=== PATIENT | male | born 1990 | race Two or more races ===

== ENCOUNTER 2024-09-27 20:09 | Emergency (ER) | payer MEDICAID | END 2024-09-27 21:41 | disposition left against medical advice (07) | LOC: ER 20:10 | DX: Z00.8 Encounter for other general examination (principal); Z53.21 Procedure and treatment not carried out due to patient leaving prior to being seen by health care provider ==

== ENCOUNTER 2024-09-28 15:50 | Inpatient (IN) | payer MEDICAID ==
[~2024-09-28] VITALS: Ht 188 cm; Wt 83.3 kg
[2024-09-28 20:30] VITALS: BP 121/85; PULSE 98; RESP 18; TEMP 97.4; O2SAT 100
[2024-09-28 20:50] VITALS: RESP 16; O2SAT 100
[2024-09-28] MEDS ORDERED: mag hydrox/Alum hydrox/simeth 30ml oral suspension PO PRN (20:55)
[2024-09-28] MEDS ORDERED: loperamide 2mg capsule PO PRN (20:55)
[2024-09-28] MEDS ORDERED: magnesium hydroxide 30ml (MOM) UD suspension PO PRN (20:55)
[2024-09-28] MEDS: NICOTINE POLACRILEX 2 MG LOZENGE BC PRN (21:31)
[2024-09-29] MEDS ORDERED: NO HOME MEDS (05:56)
[2024-09-29 07:00] VITALS: BP 114/79; PULSE 69; RESP 16; TEMP 97.6; O2SAT 100
[2024-09-29 07:13] LABS: CHOL/HDL RATIO 1.7 (0.00-4.99); LDL CHOLESTEROL 37 MG/DL (50-100)
[2024-09-29] MEDS: nicotine 21mg patch - 24 hr TD SCH (08:12)
--- NOTE | 2024-09-29 13:41 | HISTORY AND PHYSICAL ---
History & Physical Providers to CC ~ History of Present Illness Reason for Admit\Complaint: SI History of Present Illness Daniel Garrido is a 34-year-old male with past medical history of MDD, SI, methamphetamine abuse, tobacco abuse who was brought to the ED on 5150 hold by her mother due to suicidal ideation and auditory hallucinations. Patient is uncooperative therefore history taking is limited. Patient denies prior ND/CAD, CVA, cardiac arrhythmia, DVT/PE, or GIB. Patient denies current SI or HI, denies chest pain, palpitations, shortness of breath, abdominal pain, n/v/d, fever, chills, dysuria. Patient is admitted to [facility] for continued psychiatric disorder management. Allergies: Coded Allergies: No Known Allergies (Unverified , 09/28/24) Home Medications Home Medications Active Reported No Home Medications (Home Med List) Each Past Medical History Past Medical History MDD SI Tobacco abuse Methamphetamine abuse Past Surgical History Surgical History Comment Denies Family History Family History: Hypertension FATHER Past Social History Social History Comment Alcohol: Daily, 2-3 beers Tobacco: Cigarettes, daily Illicit drug use: Methamphetamine ROS ROS Other than positives in HPI, all 14 review of systems are negative Exam Vitals: Vital Signs Date Time Temp Pulse Resp B/P (MAP) Pulse Ox O2 Delivery O2 Flow Rate FiO2 09/29/24 07:00 97.6 69 16 114/79 (91) 100 Room Air General: A&Ox 3, NAD HEENT: Normocephalic, PERRLA Neck: Supple, trachea midline, no JVD Chest: Clear to auscultation bilaterally Cardiovascular: RRR, S1&S2 Abdomen: Soft and nontender Extremities: No cyanosis/clubbing/or edema Central Nervous System: CN II-XII intact, no focal deficits Musculoskeletal: No paraspinal muscle tenderness, no muscle spasm Skin: Warm and intact Counseling Services Smoking & Tobacco Cessation: > 10 Minutes Additional Plan SI Hallucinations MDD Methamphetamine abuse Tobacco abuse -continue management per psychiatry team -nicotine patch, follow UDS, baseline cbc, cmp Hospitalist team will continue to follow for patient's medical needs I spent a total of 16 minutes on smoking cessation education. I provided exten sive counseling regarding smoking cessation. Date of Service: Sep 29, 2024 Billing Provider: HAYLEY RIVAS BUSINESS SOLUTION ANALYST Common Visit Codes: [id number] INP/OBS CARE (HIGH) Secondary Visit Codes: [id number] CHNG SMOKING >10MIN HAYLEY RIVAS [facility] Sep 29, 2024 13:41
[2024-09-29 14:11] LABS: MEAN PLATELET VOLUME 7.2 FL (7.4-10.4); RED CELL DISTRIBUTION WIDTH 13.3 % (11.5-14.5)
[2024-09-29 14:31] LABS: CREATININE 1.07 MG/DL (0.60-1.10); TOTAL CARBON DIOXIDE 29.5 MMOL/L (24-32); eCRCL 112 ML/MIN; eGFR 79 ML/MIN
--- NOTE | 2024-09-29 14:36 | HISTORY AND PHYSICAL ---
History & Physical - Blank History and Physical CHIEF COMPLIANT Suicidal Ideation HISTORY OF PRESENT ILLNESS Patient presents with psychiatric problem, suicidal ideation, and patient brought in by mom with complaints of suicidal ideation. Patient according to mom the site has a history of methamphetamine use. Patient was at [facility] and left prior to being seen. Mom states that he is making statements that they are suicidal in nature such just what we will she do with his body when he dies, she states he is also hearing voices. She states he has had issues like this in the past. No falls or injuries. No fevers or chills. No chest pain or shortness on breath. No dysuria no abdominal pain no headaches no other complaints. He is on no prescription medications. CHART REVIEW Daniel was taken to [facility] by his mother after she was concerned for his safety. Jon has been behaving erratically in making suicidal statements. Upon evaluation jon was engaged, friendlyand forthcoming. He made good eye contact, was linear, organized and oriented. He presents with psychomotor agitation and reports that he had used methamphetamines a few days ago. Jon spoke with his mental health and feels he is severely depressed. Explained that he has never addressed his depression and will often utilize methamphetamine when he is in the very low place. He currently lives in the streets but has supportive family in the area. Jon continues to endorsed suicidal ideation with a plan to overdose. He stated, "I am all set up to do it." He and this clinician discussed what a 5150 is in the process of going to a mental health facility to get help. Jon is never been on a 5150 but expressed the he wants to go to a facility and get help. He also expressed that he has been trying to get clean for 10 years and would really lik [facility] with recovery once out of the facility. He reported that once he is out of the facility, he will come to [facility] to connect with ongoing services. Jon asked this clinician to contact his mother, Zandra. Zandra became tearful on the phone and expressed hope worried about him she has been in the so grateful that he is willing to finally get help. Patient endorses suicidal ideation with a plan to overdose on fentanyl and presents as extremely depressed stating I am all set up to do it. ASSESSMENT The patient was interviewed in observation room. The patient was actively walking in the hallway. The patient endorses "fine." The patient endorses I woke up in a nightmare my mom brought me to the hospital in said I said all those things and it was not true. They told me I will be here for three days and now I am here for 14 days. I was supposed to get my daughter today and I have a daughter that is due in a couple of days. Patient endorses he would like help with his methamphetamine addiction. Denies SI. Denies HI. Denies AVH. The patient endorses adequate sleep and food intake. The patient is stable no acute distress noted. The patient presents as anxious, irritable and agitated during session. Per staff report patient is medication compliant. Per staff report no abnormal behaviors. Will continue daily assessment and adjusting treatment as needed. Closely monitor behavior and response to medication during hospitalization. We will have social work follow-up with patient regarding possible admission to rehab for methamphetamine addiction. REVIEW OF LABS WBC 13.25 RBC 5.08 HEMOGLOBIN 15.8 HEMATOCRIT 43.3 PLATELET COUNT 298 SODIUM 138 POTASSIUM 3.3 CHLORIDE 104 ANION GAP 17 BUN 14 CREATININE 1.61 CALCIUM 9.2 ALBUMIN 4.8 TSH 0.79 URINE TOX SCREEN Positive for 1. Amphetamine, and 2. THC URINALYSIS NEGATIVE MENTAL STATUS EXAM APPEARANCE: DISHEVELED SPEECH: PRESSURED, CIRCUMSTANTIAL EYE CONTACT: INTERMITTENT AFFECT: LABILE MOOD: IRRTABLE, ANXIOUS ORIENTATION IMPAIRMENT: NONE MEMORY IMPAIRMENT: NONE ATTENTION: DIFFICULTY CONCENTRATING HALLUCINATIONS: DENIES AVH SUICIDALITY: NONE HOMICIDALITY: NONE DELUSIONS: NONE BEHAVIOR: AGITATED, DISMISSIVE, LABILE JUDGMENT: FAIR INSIGHT: FAIR TREATMENT Start Gabapentin 100mg TID - Anxiety Start Bupropion 100mg 1 tab in AM - Meth Craving 5150 HOLD-DTS- Patient is unable to formulate a plan to safety due to the severity of their mental illness. We are still titrating medications to an effective dose while maintaining a therapeutic environment to prevent decompensation and readmission. Monitoring by Staff, Milieu, Group, and Individual counseling as needed -- According to the [place] Suicide Assessment the above named patient is on Q15 MINUTE CHECKS. Total time spent 90 minutes on REVIEW OF Clinical notes [X ] RN notes [X] PCT documentation [X] SW notes Labs [ X] Medications [X] Care trends/care activity [X] Vitals [X] DISCUSSION WITH audio visual equipment rental clerk [X] Staff SW Treatment Team [X] Discharge unsure at this time. Homeless once stable. Past Psychiatric History Past Psychiatric History Denies any psychiatric hospitalizations Past Medical History Past Medical History See Medical H&P Past Surgical History Past Surgical History Denies any surgical history Past Family History Patient History: Hypertension FATHER Substance Abuse History Substance Abuse History Marijuana-occ Tobacco-daily Illicit drugs-methamphetamines last use 4 days ago Alcohol-daily Personal History Current Living Situation [facility] Marital & Relationship History Never been been Two children one on the [address] Sexual History Defer Occupational History Currently unemployed Social Activity Born and raised in [place] is Graduated high school Five sibling Legal History Three 0 of incarceration History No service Developmental History Childhood No history of abuse Assessment/Plan Problems/Diagnosis: (1) Suicidal ideation (2) Drug-induced mood disorder (3) Methamphetamine abuse CODING VISIT-PSYCHIATRY Date of Service: Sep 29, 2024 Billing Provider: ALPHONSE CARLISLE APRN Psych Common Visit Codes: [id number] INP/OBS CARE (Mod) ALPHONSE CARLISLE APRN Sep 29, 2024 14:36
[2024-09-29 18:56] VITALS: RESP 16; O2SAT 98
[2024-09-29 20:29] VITALS: RESP 16
[2024-09-30 07:00] VITALS: BP 113/77; PULSE 66; RESP 15; RESP 16; TEMP 97.8; O2SAT 97; O2SAT 99
[2024-09-30] MEDS: buPROPion 100mg tablet PO SCH (07:56)
--- NOTE | 2024-09-30 13:37 | PROGRESS NOTE ---
Progress Note Dictate Providers to CC ~ Central Line/PICC still needed: N\\A Antibiotic Ordered?: N/A MRSA Education MRSA Education Provided to pt: N/A Objective Vitals Vital Signs Date Time Temp Pulse Resp B/P (MAP) Pulse Ox O2 Delivery O2 Flow Rate FiO2 09/30/24 07:00 16 97 Room Air 09/30/24 07:00 97.8 66 113/77 (89) Lab Results: 09/29/24 1354 09/29/24 1354 Problem\\Assessment\\Plan Problems/Diagnosis: (1) Suicidal ideation (2) Drug-induced mood disorder (3) Methamphetamine abuse Psychiatrist's Progress Note Date of Service: Sep 30, 2024 Notes CHART REVIEW Daniel was taken to [facility] by his mother after she was concerned for his safety. Jon has been behaving erratically in making suicidal statements. Upon evaluation jon was engaged, friendlyand forthcoming. He made good eye contact, was linear, organized and oriented. He presents with psychomotor agitation and reports that he had used methamphetamines a few days ago. Jon spoke with his mental health and feels he is severely depressed. Explained that he has never addressed his depression and will often utilize methamphetamine when he is in the very low place. He currently lives in the streets but has supportive family in the area. Jon continues to endorsed suicidal ideation with a plan to overdose. He stated, "I am all set up to do it." He and this clinician discussed what a 5150 is in the process of going to a mental health facility to get help. Jon is never been on a 5150 but expressed the he wants to go to a facility and get help. He also expressed that he has been trying to get clean for 10 years and would really like health with recovery once out of the facility. He reported that once he is out of the facility, he will come to [facility] to connect with ongoing services. Jon asked this clinician to contact his mother, Zandra. Zandra became tearful on the phone and expressed hope worried about him she has been in the so grateful that he is willing to finally get help. Patient endorses suicidal ideation with a plan to overdose on fentanyl and presents as extremely depressed stating I am all set up to do it. ASSESSMENT The patient was interviewed in observation room. The patient was in his bed, resting. The patient endorses "I'm fine." "My anxiety levels are better." Denies SI. Denies HI. Denies AVH. The patient endorses adequate sleep and food intake. Patient endorses he would like help with his methamphetamine addiction. The patient is stable no acute distress noted. The patient presents as anxious, irritable and agitated during session. Per staff report patient is medication compliant. Per staff report no abnormal behaviors. Will continue daily assessment and adjusting treatment as needed. Closely monitor behavior and response to medication during hospitalization. We will have social work follow-up with patient regarding possible admission to rehab for methamphetamine addiction. Results Of any Diagn. Testing WBC 13.25 RBC 5.08 HEMOGLOBIN 15.8 HEMATOCRIT 43.3 PLATELET COUNT 298 SODIUM 138 POTASSIUM 3.3 CHLORIDE 104 ANION GAP 17 BUN 14 CREATININE 1.61 CALCIUM 9.2 ALBUMIN 4.8 TSH 0.79 URINE TOX SCREEN Positive for 1. Amphetamine, and 2. THC URINALYSIS NEGATIVE Appearnace: Disheveled Speech: Normal Eye Contact: Intense Motor Activity: Normal Affect: Labile Mood: Irritable Orientation Impairment: None Memory Impairment: None Attention: Normal Hallucinations: None Other: None Suicidality: None Homicidality: None Delusions: None Behavior: Cooperative, Guarded Insight: Fair Judgment: Fair Treatment Start Gabapentin 100mg TID - Anxiety Start Bupropion 100mg 1 tab in AM - Meth Craving 5150 HOLD-DTS- Patient is unable to formulate a plan to safety due to the severity of their mental illness. We are still titrating medications to an effective dose while maintaining a therapeutic environment to prevent decompensation and readmission. Monitoring by Staff, Milieu, Group, and Individual counseling as needed -- According to the [place] Suicide Assessment the above named patient is on Q15 MINUTE CHECKS. Total time spent 90 minutes on REVIEW OF Clinical notes [X ] RN notes [X] PCT documentation [X] SW notes Labs [ X] Medications [X] Care trends/care activity [X] Vitals [X] DISCUSSION WITH screen printing paster [X] Discharge Discharge unsure at this time. Homeless once stable. CODING VISIT-PSYCHIATRY Date of Service: Sep 30, 2024 Billing Provider: ALPHONSE CARLISLE APRN Psych Common Visit Codes: [id number] INP/OBS CARE(Mod) ALPHONSE CARLISLE APRN Sep 30, 2024 13:37
[2024-09-30 19:00] VITALS: RESP 16; O2SAT 98
[2024-09-30 20:00] VITALS: BP 121/82; PULSE 77; RESP 16; TEMP 98; O2SAT 98
[2024-10-01 07:00] VITALS: BP 119/78; PULSE 70; RESP 14; TEMP 98.6; O2SAT 99
[2024-10-01] MEDS ORDERED: GABA-530 PO (08:15)
[2024-10-01] MEDS ORDERED: BUPR-122 PO (08:15)
--- NOTE | 2024-10-01 08:43 | DISCHARGE SUMMARY ---
Discharge Summary Providers to ~ Discharge Summary Admission Diagnosis: suicidal ideation Hospital Course DATE OF ADMISSION: 09/28/2024 DATE OF DISCHARGE:10/01/2024 Discharge Diagnosis\Comment: Daniel was admitted on a 5150 DTS hold due to expressing suicidal ideations. During his stay, Daniel was closely monitored and was started on Gabapentin 100 mg three times daily and Wellbutrin 100 mg once daily to help stabilize his mood and manage anxiety. Daniel responded well to the medication regimen, showing significant improvement in mood and a reduction in suicidal thoughts. He engaged actively in therapy, where he developed coping strategies and identified triggers related to his substance use and emotional distress. Mental Status Examination : Appearance: Well-groomed, appropriately dressed for the weather and setting. Behavior: Cooperative and calm during the interview. Speech: Normal rate, rhythm, and volume. Mood: Euthymic. Affect: Congruent with mood, full range. Thought Process: Logical and goal-directed. Thought Content: Denies current suicidal or homicidal ideations. No delusions or hallucinations noted. Cognition: Alert and oriented to person, place, time, and situation. Insight: Good; acknowledges the need for ongoing treatment and follow-up. Judgment: Intact; understands the importance of medication adherence and follow- up Operations\Procedures: none Consultants: Hospitalists managed patient medical concerns Complications: none Condition on DC: Stable 2 or more antipsychotic used: No 2/more antipsychotic addressed: No Does Patient smoke: Yes Smoking education given.: Yes New Medications: Bupropion HCl (Bupropion HCl) 100 Mg Tablet 100 MG PO DAILY for 30 Days, #30 TAB Gabapentin (Gabapentin) 100 Mg Capsule 100 MG PO TID for 30 Days, #90 CAP Discontinued Medications: Home Med List (No Home Medications) Each Discharge Summary: Risk Assessment: Suicidal Risk: Low. Daniel denies any current suicidal ideations or plans. He has a supportive network and is motivated to engage in follow-up care. Homicidal Risk: Low. No evidence of homicidal thoughts or intentions. Substance Use Risk: Daniel has a history of methamphetamine use. He is encouraged to continue attending support groups and therapy to maintain sobriety. Discharge Plan: Daniel is discharged with a 30-day supply of his medications and instructions to follow up with his mental health provider. He is encouraged to engage in outpatient therapy and support groups to address his substance use history and to continue building coping strategies for managing stress and mood. Crisis and Emergency Resources: National Suicide Prevention Lifeline: 7-610-027-TALK ( ) Local Crisis Line: 988 Emergency Services: 911 *Problems/Diagnosis: (1) Suicidal ideation (2) Drug-induced mood disorder (3) Methamphetamine abuse Total Time Spent on D/C: > 30 Minutes Counseling Services Smoking & Tobacco Cessation: > 10 Minutes CODING VISIT-PSYCHIATRY Date of Service: Oct 01, 2024 Billing Provider: SAM REYES DNP Psych Common Visit Codes: 64617-YLT/OBS DISCH DAY >30min Psych Secondary Visit Codes: [id number] CHNG SMOKING >10MIN SAM REYES DNP Oct 01, 2024 08:32
== END 2024-10-01 09:07 | disposition home or self-care (01) | DRG 776 ==
LOC: ADULT MH 20:43
PROVIDERS: ADMIT Psychiatry & Neurology Psychiatry; ATTEND Psychiatry & Neurology Psychiatry
PROC: GZHZZZZ Group Psychotherapy (ICD-10-PCS; principal; 2024-09-29)
PROC: GZ51ZZZ Individual Psychotherapy, Behavioral (ICD-10-PCS; 2024-09-29)
DX: F15.14 Other stimulant abuse with stimulant-induced mood disorder (principal); R45.851 Suicidal ideations; F32.9 Major depressive disorder, single episode, unspecified; F17.210 Nicotine dependence, cigarettes, uncomplicated; F41.9 Anxiety disorder, unspecified; I10 Essential (primary) hypertension; Z56.0 Unemployment, unspecified; Z59.02 Unsheltered homelessness; Z82.49 Family history of ischemic heart disease and other diseases of the circulatory system; Z79.899 Other long term (current) drug therapy
CPT/HCPCS: 36415; 80053; 80061; 83036; 85025; 87081; 99285; Q0177